=== PATIENT | male | born 1950 | race Caucasian/White ===

== ENCOUNTER 2020-06-13 17:20 | Emergency (ER) | payer OTHER ==
[2020-06-13 18:48] LABS: HEMOGLOBIN 13.4 gm/dl (14.0-17.5); RED BLOOD COUNT 4.33 M/UL (4.20-5.50)
[2020-06-13 19:12] LABS: BUN/CREATININE RATIO 21 (0-10)
[2020-06-15 09:13] LABS: HBSAG SCREEN Negative (Negative); HEP A AB, IGM Negative (Negative); HEP B CORE AB, IGM Negative (Negative); HEP C VIRUS AB <0.1 (0.0-0.9)
[2020-08-22] MEDS ORDERED: GEMFIBROZIL600 MG PO (07:03)
[2020-08-22] MEDS ORDERED: HYDROCHLOROTH12.5 MG PO (07:03)
[2020-08-22] MEDS ORDERED: LISINOPRIL40 MG PO (07:04)
[2020-08-22] MEDS ORDERED: ISOSORBIDE MONO30 MG PO (07:04)
[2020-08-22] MEDS ORDERED: PRAVASTATIN SOD40 MG PO (07:05)
[2020-08-22] MEDS ORDERED: LOPRESSOR 50 MG50 MG PO (07:05)
[2020-08-22] MEDS ORDERED: ST. JOSEPH ASPI81 M1 PO (07:06)
[2020-08-22] MEDS ORDERED: RANEXA500 MG PO (07:07)
[2020-08-22] MEDS ORDERED: VITAMIN D3125 MCG PO (07:07)
== END 2020-06-13 22:15 | disposition home or self-care (01) ==
LOC: ER1 17:20
PROVIDERS: Nurse Practitioner
DX: K75.9 Inflammatory liver disease, unspecified (principal); R19.7 Diarrhea, unspecified; R94.5 Abnormal results of liver function studies; K62.89 Other specified diseases of anus and rectum; J98.11 Atelectasis; I10 Essential (primary) hypertension; Z87.891 Personal history of nicotine dependence; Z98.890 Other specified postprocedural states; Z20.822 Contact with and (suspected) exposure to COVID-19
CPT/HCPCS: 70450; 71045; 80053; 80074; 81001; 82140; 82550; 82553; 83605; 83690; 83735; 83874; 84484; 85025; 85610; 87040; 87081; 87880; 93005; 99284; U0002

== ENCOUNTER → 2020-06-19 | Outpatient (CLI) | payer OTHER, MEDICARE ==
[~2020-06-19] MED LIST: BENTYL 20MG TAB20 MG PO; GEMFIBROZIL600 MG PO; HYDROCHLOROTH12.5 MG PO; ISOSORBIDE MONO30 MG PO; LISINOPRIL40 MG PO; LOPRESSOR 50 MG50 MG PO; PRAVASTATIN SOD40 MG PO; RANEXA500 MG PO; ST. JOSEPH ASPI81 M1 PO; VITAMIN D3125 MCG PO; ZOFRAN ODT 4 MG4 MG PO
== END ==
LOC: KOH-I 08:45
DX: B17.9 Acute viral hepatitis, unspecified (principal); K76.0 Fatty (change of) liver, not elsewhere classified; N28.89 Other specified disorders of kidney and ureter; N28.1 Cyst of kidney, acquired; K82.8 Other specified diseases of gallbladder
CPT/HCPCS: 76705

== ENCOUNTER → 2020-08-22 | Day surgery (SDC) | payer OTHER, MEDICARE | END | disposition home or self-care (01) | LOC: OR | DX: Z12.11 Encounter for screening for malignant neoplasm of colon (principal); D12.3 Benign neoplasm of transverse colon; D12.7 Benign neoplasm of rectosigmoid junction; I10 Essential (primary) hypertension; E78.5 Hyperlipidemia, unspecified; Z87.891 Personal history of nicotine dependence; Z79.82 Long term (current) use of aspirin; Z79.899 Other long term (current) drug therapy | CPT/HCPCS: J2704; J7040 ==

== ENCOUNTER 2020-10-24 11:46 | Emergency (ER) | payer OTHER, MEDICARE ==
[~2020-10-24 11:46] MED LIST changes: -BENTYL 20MG TAB20 MG PO; -ZOFRAN ODT 4 MG4 MG PO
[2020-10-24 13:04] LABS: HEMOGLOBIN 11.7 gm/dl (14.0-17.5); RED BLOOD COUNT 3.74 M/UL (4.20-5.50); WHITE BLOOD COUNT 12.8 K/UL (4.5-11.0)
[2020-10-24] MEDS ORDERED: ZOFRAN ODT 4 MG4 MG PO (15:21)
[2020-10-24] MEDS ORDERED: BENTYL 20MG TAB20 MG PO (15:21)
[2020-10-25 13:10] LABS: HBSAG SCREEN Negative (Negative); HEP A AB, IGM Negative (Negative); HEP B CORE AB, IGM Negative (Negative); HEP C VIRUS AB <0.1 (0.0-0.9)
== END 2020-10-24 18:47 | disposition home or self-care (01) ==
LOC: ER1 11:46
PROVIDERS: Physician Assistant
DX: K80.50 Calculus of bile duct without cholangitis or cholecystitis without obstruction (principal); I10 Essential (primary) hypertension; R53.83 Other fatigue; R94.5 Abnormal results of liver function studies
CPT/HCPCS: 80053; 80074; 80307; 81001; 82140; 83690; 85025; 85610; 85652; 85730; 86140; 87086; 96374; 99284; J2405

== ENCOUNTER → 2020-10-31 | Outpatient (CLI) | payer OTHER, MEDICARE ==
[~2020-10-31] VITALS: Ht 182.9 cm; Wt 99.8 kg
[~2020-10-31] MED LIST changes: +BENTYL 20MG TAB20 MG PO; +ZOFRAN ODT 4 MG4 MG PO
== END ==
LOC: OPSV 10:00
DX: K80.20 Calculus of gallbladder without cholecystitis without obstruction (principal)
CPT/HCPCS: 96365; J0696

== ENCOUNTER → 2020-11-01 | Outpatient (CLI) | payer OTHER, MEDICARE ==
[~2020-11-01] VITALS: Ht 182.9 cm; Wt 99.8 kg
== END ==
LOC: OPSV 06:55
DX: K80.20 Calculus of gallbladder without cholecystitis without obstruction (principal)
CPT/HCPCS: 96365; J0696

== ENCOUNTER → 2020-11-02 | Outpatient (CLI) | payer OTHER, MEDICARE ==
[~2020-11-02] VITALS: Ht 182.9 cm; Wt 99.8 kg
== END ==
LOC: OPSV 07:00
DX: K80.20 Calculus of gallbladder without cholecystitis without obstruction (principal)
CPT/HCPCS: 96365; J0696

== ENCOUNTER → 2020-11-03 | Outpatient (CLI) | payer OTHER, MEDICARE ==
[~2020-11-03] VITALS: Ht 182.9 cm; Wt 99.8 kg
== END ==
LOC: OPSV 07:00
DX: K80.20 Calculus of gallbladder without cholecystitis without obstruction (principal)
CPT/HCPCS: 96365; J0696

== ENCOUNTER → 2020-11-04 | Outpatient (CLI) | payer OTHER, MEDICARE ==
[~2020-11-04] VITALS: Ht 182.9 cm; Wt 99.8 kg
== END ==
LOC: OPSV 07:00
DX: K80.20 Calculus of gallbladder without cholecystitis without obstruction (principal)
CPT/HCPCS: 96365; J0696

== ENCOUNTER → 2020-11-05 | Outpatient (CLI) | payer OTHER, MEDICARE ==
[~2020-11-05] VITALS: Ht 182.9 cm; Wt 99.8 kg
== END ==
LOC: OPSV 06:50
DX: K80.20 Calculus of gallbladder without cholecystitis without obstruction (principal)
CPT/HCPCS: 96365; J0696

== ENCOUNTER → 2020-11-06 | Outpatient (CLI) | payer OTHER, MEDICARE ==
[~2020-11-06] VITALS: Ht 182.9 cm; Wt 99.8 kg
== END ==
LOC: OPSV 07:00
DX: K80.20 Calculus of gallbladder without cholecystitis without obstruction (principal)
CPT/HCPCS: 96365; J0696

== ENCOUNTER → 2020-11-07 | Outpatient (CLI) | payer OTHER, MEDICARE ==
[~2020-11-07] VITALS: Ht 182.9 cm; Wt 99.8 kg
[2020-11-07 08:02] LABS: BUN/CREATININE RATIO 18 (0-10)
[2020-11-07 08:03] LABS: HEMOGLOBIN 12.6 gm/dl (14.0-17.5); RED BLOOD COUNT 4.07 M/UL (4.20-5.50); WHITE BLOOD COUNT 8.9 K/UL (4.5-11.0)
== END ==
LOC: OPSV 06:59
PROVIDERS: Internal Medicine Infectious Disease
DX: K80.20 Calculus of gallbladder without cholecystitis without obstruction (principal); Z79.899 Other long term (current) drug therapy
CPT/HCPCS: 36415; 80053; 85025; 85652; 86140; 96365; J0696

== ENCOUNTER → 2020-11-08 | Outpatient (CLI) | payer OTHER, MEDICARE ==
[~2020-11-08] VITALS: Ht 182.9 cm; Wt 99.8 kg
== END ==
LOC: OPSV 06:49
DX: K80.20 Calculus of gallbladder without cholecystitis without obstruction (principal)
CPT/HCPCS: 96365; J0696

== ENCOUNTER → 2020-11-09 | Outpatient (CLI) | payer OTHER, MEDICARE ==
[~2020-11-09] VITALS: Ht 182.9 cm; Wt 99.8 kg
== END ==
LOC: OPSV 06:44
DX: K80.20 Calculus of gallbladder without cholecystitis without obstruction (principal)
CPT/HCPCS: 96365; J0696

== ENCOUNTER → 2021-03-04 | Outpatient (CLI) | payer OTHER, MEDICARE | LOC: LAB 10:17 | DX: R19.7 Diarrhea, unspecified (principal) | CPT/HCPCS: 36415 ==

== ENCOUNTER 2021-03-08 07:41 | Inpatient (IN) | payer OTHER, MEDICARE ==
[~2021-03-08] VITALS: Ht 182.9 cm; Wt 99.3 kg
[~2021-03-08 07:41] MED LIST changes: +ASPIRIN EC81 MG PO; -ST. JOSEPH ASPI81 M1 PO
[2021-03-08 08:23] LABS: HEMOGLOBIN 14.3 gm/dl (14.0-17.5); RED BLOOD COUNT 4.54 M/UL (4.20-5.50); WHITE BLOOD COUNT 18.4 K/UL (4.5-11.0)
[2021-03-08 08:41] LABS: BUN/CREATININE RATIO 14 (0-10)
[2021-03-08] MEDS ORDERED: ANUCORT-HC25 MG PR (13:25)
[2021-03-08] MEDS ORDERED: VANCOMYCIN HCL125 MG PO (13:26)
[2021-03-09 13:12] LABS: ADENOVIRUS F 40/41 Not Detected (Negative); ASTROVIRUS Not Detected (Negative); CAMPYLOBACTER Not Detected (Negative); CLOSTRIDIUM DIFFICILE TOX A/B Not Detected (Negative); CRYPTOSPORIDIUM Not Detected (Negative); E.COLI 0157 Not Detected (Negative); ENTAMOEBA HISTOLYTICA Not Detected (Negative); ENTEROAGGREGATIVE E.COLI (EAEC Not Detected (Negative); ENTEROPATHOGENIC E.COLI (EPEC) Not Detected (Negative); ENTEROTOXIGENIC E.COLI (ETEC) Not Detected (Negative); GIARDIA LAMBLIA Not Detected (Negative); NOROVIRUS GI/GII Not Detected (Negative); PLESIOMONAS SHIGELLOIDES Not Detected (Negative); ROTOVIRUS A Not Detected (Negative); SALMONELLA Not Detected (Negative); SAPOVIRUS Not Detected (Negative); SHIG/ENTEROINVAS.ECOLI (EIEC) Not Detected (Negative); SHIGA-LIK TOX.PRO.E.COLI (STEC Not Detected (Negative); VIBRIO Not Detected (Negative); VIBRIO CHOLERAE Not Detected (Negative); YERSINIA ENTEROCOLITICA Not Detected (Negative)
== END 2021-03-09 15:18 | disposition home or self-care (01) | DRG 346 ==
LOC: ER1 07:41 → CDU 12:58 → MED SURG 4 16:34
PROVIDERS: Emergency Medicine; ADMIT Surgery
PROC: 0D9P0ZZ Drainage of Rectum, Open Approach (ICD-10-PCS; principal; 2021-03-08 15:33)
DX: K61.1 Rectal abscess (principal); Z20.822 Contact with and (suspected) exposure to COVID-19; I10 Essential (primary) hypertension; E78.5 Hyperlipidemia, unspecified
CPT/HCPCS: 80053; 81001; 83605; 83690; 85025; 87507; 96374; 96375; 99285; J1100; J1885; J2001; J2270; J2405; J2704; J3010; J7120; Q9967; U0002

== ENCOUNTER → 2021-07-01 | Outpatient (CLI) | payer OTHER, MEDICARE ==
[~2021-07-01] MED LIST changes: +ANUCORT-HC25 MG PR; +VANCOMYCIN HCL125 MG PO
== END ==
LOC: MRI 12:37
DX: K60.3 Anal fistula (principal)
CPT/HCPCS: 72195

== ENCOUNTER → 2021-07-16 | Day surgery (SDC) | payer OTHER, MEDICARE ==
[~2021-07-16] MED LIST changes: +ENDOCET 5-3251 EACH PO
== END | disposition home or self-care (01) ==
LOC: OR 08:06
DX: K60.3 Anal fistula (principal); I25.10 Atherosclerotic heart disease of native coronary artery without angina pectoris; E78.5 Hyperlipidemia, unspecified; I10 Essential (primary) hypertension; Z20.822 Contact with and (suspected) exposure to COVID-19; Z79.82 Long term (current) use of aspirin; Z72.0 Tobacco use
CPT/HCPCS: 93005; J0690; J0694; J1100; J1170; J2001; J2405; J2704; J2710; J3010; J7030; J7120

== ENCOUNTER → 2021-10-03 | Outpatient (CLI) | payer OTHER, MEDICARE | LOC: MRI 09:19 | DX: K61.1 Rectal abscess (principal); Z00.00 Encounter for general adult medical examination without abnormal findings | CPT/HCPCS: 36415; 72197; 82565; 84520; A9577 ==

== ENCOUNTER → 2021-10-18 | Outpatient (CLI) | payer OTHER, MEDICARE ==
[2021-10-18 09:57] LABS: BUN/CREATININE RATIO 19 (0-10)
== END ==
LOC: OPSV2 08:00
PROVIDERS: Surgery
DX: Z01.818 Encounter for other preprocedural examination (principal); K60.3 Anal fistula; I10 Essential (primary) hypertension; I25.10 Atherosclerotic heart disease of native coronary artery without angina pectoris
CPT/HCPCS: 36415; 80048; 93005

== ENCOUNTER → 2021-10-29 | Day surgery (SDC) | payer OTHER, MEDICARE ==
[~2021-10-29] MED LIST changes: +PERCOCET 10-321 EACH PO
== END | disposition home or self-care (01) ==
LOC: OR 05:25
DX: K60.3 Anal fistula (principal); I10 Essential (primary) hypertension; E78.5 Hyperlipidemia, unspecified; Z87.891 Personal history of nicotine dependence; Z79.899 Other long term (current) drug therapy
CPT/HCPCS: C1729; C2617; J0694; J1100; J1170; J2001; J2405; J2704; J3010; J7030; J7120